=== PATIENT | female | born 1930 | race Caucasian/White ===

== ENCOUNTER 2017-09-06 10:54 | Emergency (ER) | payer MEDICARE ==
[~2017-09-06] VITALS: Ht 157.5 cm; Wt 52.2 kg
[2017-09-06] MEDS ORDERED: DEXAMETHASONE SOD PHOS 10 MG/1 ML VIAL IV ONE (11:45)
[2017-09-06 12:39] LABS: BASOPHILS % 0.7 % (0.0-1.0); BILIRUBIN,URINE NEGATIVE (NEGATIVE); COLOR,URINE YELLOW (YELLOW); EOSINOPHILS # (AUTO) 0.2 (0.0-0.4); EOSINOPHILS % 2.8 % (0.0-6.0); HEMATOCRIT 39.6 % (34.2-44.1); HEMOGLOBIN 13.1 g/dL (12.0-16.0); KETONES,URINE NEGATIVE (NEGATIVE); LEUKOCYTE ESTERASE ,URINE 1+ (NEGATIVE); LYMPHOCYTES # (AUTO) 0.9 (1.0-3.2); MEAN CORPUSCULAR HEMOGLOBIN 31.6 pg (28-32); MEAN CORPUSCULAR HGB CONC 33.1 g/dL (31-35); MEAN CORPUSCULAR VOLUME 95.7 fL (81-99); MONOCYTES # (AUTO) 0.5 (0.2-0.8); NEUTROPHILS % 71.3 % (38.7-80.0); NITRITE,URINE NEGATIVE (NEGATIVE); PLATELET COUNT 203 x10e3/uL (140-360); PROTEIN,URINE DIPSTICK NEGATIVE (NEGATIVE); RED BLOOD COUNT 4.14 x10e6/uL (3.6-5.1); RED CELL DISTRIBUTION WIDTH 13.3 % (11.7-14.4); URINE UROBILINOGEN 0.2 mg/dL (0.2 - 1)
[2017-09-06 12:42] LABS: CLARITY,URINE SL CLOUDY (CLEAR)
[2017-09-06 12:51] LABS: WBC,URINE (MAN) 0-5 /HPF (0-5)
[2017-09-06 12:52] LABS: BACTERIA,URINE FEW /HPF; EPITHELIAL CELLS,URINE MODERATE /LPF; MUCUS,URINE FEW (RARE)
[2017-09-06 12:58] LABS: ALBUMIN 3.8 g/dL (3.5-5.0); ANION GAP 13.3 mmol/L (8-16); CALCIUM 9.6 mg/dL (8.4-10.2); CREATININE, SERUM 1.17 mg/dL (0.57-1.11); POTASSIUM 4.3 mmol/L (3.5-5.1)
[2017-09-06 13:35] LABS: EOSINOPHILS % (MANUAL) 2 % (0-7); LYMPHOCYTES % (MANUAL) 11 % (19-48); MONOCYTES % (MANUAL) 6 % (3.4-9.0); NEUTROPHILS % (MANUAL) 78 % (40-74)
[2017-09-06 13:36] LABS: PLATELET ESTIMATE ADEQUATE; PLATELET MORPHOLOGY COMMENT NORMAL; RBC MORPHOLOGY COMMENT NORMAL
[2017-09-06] MEDS ORDERED: FAMOTIDINE 20 MG/2 ML VIAL IV SCH (16:30)
== END 2017-09-06 13:59 | disposition home or self-care (01) ==
LOC: ER 10:54
DX: R21 Rash and other nonspecific skin eruption (principal); L23.9 Allergic contact dermatitis, unspecified cause
CPT/HCPCS: 36415; 80053; 81001; 85025; 99284; J1100

== ENCOUNTER 2018-01-04 09:18 | Emergency (ER) | payer MEDICARE ==
[~2018-01-04] VITALS: Ht 157.5 cm; Wt 52.2 kg
== END 2018-01-04 09:35 | disposition home or self-care (01) ==
LOC: FSED 09:18
DX: L08.1 Erythrasma (principal)
CPT/HCPCS: 99283

== ENCOUNTER 2018-07-09 08:33 | Emergency (ER) | payer MEDICARE ==
[~2018-07-09] VITALS: Ht 157.5 cm; Wt 52.2 kg
== END 2018-07-09 08:51 | disposition home or self-care (01) ==
LOC: FSED 08:33
DX: L29.9 Pruritus, unspecified (principal); L23.9 Allergic contact dermatitis, unspecified cause
CPT/HCPCS: 99283

== ENCOUNTER 2018-08-26 07:46 | Emergency (ER) | payer MEDICARE ==
[~2018-08-26] VITALS: Ht 157.5 cm; Wt 52.2 kg
== END 2018-08-26 08:18 | disposition home or self-care (01) ==
LOC: FSED 07:46
DX: L23.7 Allergic contact dermatitis due to plants, except food (principal)
CPT/HCPCS: 99282

== ENCOUNTER 2018-10-12 11:42 | Emergency (ER) | payer MEDICARE, OTHER ==
[~2018-10-12] VITALS: Ht 157.5 cm; Wt 55.8 kg
--- NOTE | 2018-10-12 13:39 | Diagnostic Imaging Report ---
EXAM: CXR 2 VIEW - HOPD, PA and lateral DATE: 10/12/2018 Time stamp on exam: 12:42 PM INDICATION: Flu like symptoms COMPARISON: None FINDINGS: LINES/TUBES: None LUNGS: No consolidations or edema. PLEURA: No effusions or pneumothorax. HEART AND MEDIASTINUM: Normal size and contour. Tortuous calcified thoracic aorta. BONES AND SOFT TISSUES: No acute findings. Degenerative changes of the spine. IMPRESSION: No acute thoracic abnormality. Signed by: Dr. Yousuf Soares DO on 10/12/2018 1:35 PM
[2018-10-12 15:07] VITALS: BP 154/69
== END 2018-10-12 15:09 | disposition home or self-care (01) ==
LOC: FSED 11:42
DX: J02.9 Acute pharyngitis, unspecified (principal); I47.1 Supraventricular tachycardia; H91.90 Unspecified hearing loss, unspecified ear
CPT/HCPCS: 71046; 80048; 80076; 81003; 83518; 83605; 85025; 87040; 87400; 93005; 99284